=== PATIENT | female | born 1975 | race Caucasian/White ===

== ENCOUNTER 2018-08-10 13:46 | Outpatient (CLI) | payer OTHER ==
[~2018-08-10 13:46] MED LIST: KETO10TA2 PO
== END 2018-08-10 13:51 | disposition home or self-care (01) ==
LOC: SONOGRAMA 13:46 → MAMO-SONO 14:45
DX: M25.562 Pain in left knee (principal)

== ENCOUNTER → 2019-08-29 | Outpatient (CLI) | payer OTHER | END | disposition home or self-care (01) | LOC: MRI 11:52 | DX: M54.2 Cervicalgia (principal); M54.12 Radiculopathy, cervical region | CPT/HCPCS: 72141 ==

== ENCOUNTER 2020-04-29 06:00 | Inpatient (IN) | payer OTHER ==
[~2020-04-29] VITALS: Ht 157.5 cm; Wt 83.9 kg
[2020-05-01] MEDS ORDERED: OXYC1TAB9 PO (07:36)
[2020-05-01] MEDS ORDERED: HYOSCYAMINE0.125 M1 SL (07:36)
== END 2020-05-01 09:36 | disposition home or self-care (01) | DRG 742 ==
LOC: CIR.AMB 06:00 → OB/GYN 12:22 → O/R 12:22 → OB/GYN 13:12
PROVIDERS: ADMIT Obstetrics & Gynecology Gynecology; ATTEND Obstetrics & Gynecology Gynecology
PROC: 0UB67ZZ Excision of Left Fallopian Tube, Via Natural or Artificial Opening (ICD-10-PCS; 2020-04-29)
PROC: 0DNW4ZZ Release Peritoneum, Percutaneous Endoscopic Approach (ICD-10-PCS; 2020-04-29)
PROC: 0DQG4ZZ Repair Left Large Intestine, Percutaneous Endoscopic Approach (ICD-10-PCS; 2020-04-29)
PROC: 0UT9FZZ Resection of Uterus, Via Natural or Artificial Opening With Percutaneous Endoscopic Assistance (ICD-10-PCS; principal; 2020-04-29 09:45)
DX: D25.1 Intramural leiomyoma of uterus (principal); S36.533A Laceration of sigmoid colon, initial encounter; K91.71 Accidental puncture and laceration of a digestive system organ or structure during a digestive system procedure; D25.2 Subserosal leiomyoma of uterus; N83.8 Other noninflammatory disorders of ovary, fallopian tube and broad ligament; K66.0 Peritoneal adhesions (postprocedural) (postinfection); Y65.8 Other specified misadventures during surgical and medical care